=== PATIENT | female | born 1960 | race Caucasian/White ===

== ENCOUNTER 2018-10-29 01:48 | Emergency (ER) | payer BC, OTHER ==
[~2018-10-29] VITALS: Ht 154.9 cm; Wt 104.3 kg
[~2018-10-29 01:48] MED LIST: CYMBALTA; MICARDIS; NEXIUM40 MG PO; TRIAMTERENE-HCTZ1 EA PO; VERAPAMIL; Z.0.BACTRIM DS TAB1; ZEGERID
[2018-10-29] MEDS ORDERED: KETOROLAC TROMETHAMINE 30 MG/ML VIAL IV STA (01:55)
[2018-10-29 02:33] LABS: BASOPHILS # (AUTO) 0.1 (0.0-0.1); BASOPHILS % 0.7 % (0.0-1.0); EOSINOPHILS # (AUTO) 0.2 (0.0-0.4); EOSINOPHILS % 2.4 % (0.0-6.0); HEMATOCRIT 45.1 % (34.2-44.1); HEMOGLOBIN 14.4 g/dL (12.0-16.0); LYMPHOCYTES # (AUTO) 3.1 (1.0-3.2); LYMPHOCYTES % 43.5 % (18.0-39.1); MEAN CORPUSCULAR HEMOGLOBIN 30.5 pg (28-32); MEAN CORPUSCULAR HGB CONC 31.9 g/dL (31-35); MEAN CORPUSCULAR VOLUME 95.6 fL (81-99); MONOCYTES # (AUTO) 0.5 (0.2-0.8); MONOCYTES % 7.1 % (4.4-11.3); NEUTROPHILS # (AUTO) 3.3 (2.1-6.9); PLATELET COUNT 337 x10e3/uL (140-360); RED BLOOD COUNT 4.72 x10e6/uL (3.6-5.1); RED CELL DISTRIBUTION WIDTH 14.5 % (11.7-14.4)
[2018-10-29 03:06] LABS: ALANINE AMINOTRANSFERASE 14 IU/L (0-55); ALBUMIN 3.5 g/dL (3.5-5.0); ALBUMIN/GLOBULIN RATIO 0.9 (0.8-2.0); ALKALINE PHOSPHATASE 162 IU/L (40-150); ANION GAP 15.5 mmol/L (8-16); BLOOD UREA NITROGEN 18 mg/dL (7-26); BUN/CREATININE RATIO 20 (6-25); CALCIUM 9.8 mg/dL (8.4-10.2); CARBON DIOXIDE 26 mmol/L (22-29); CHLORIDE 98 mmol/L (98-107); CREATININE, SERUM 0.88 mg/dL (0.57-1.11); EST GLOMERULAR FILTRATION RATE > 60 ML/MIN (60-); GLUCOSE 111 mg/dL (74-118); POTASSIUM 3.5 mmol/L (3.5-5.1); SODIUM 136 mmol/L (136-145)
--- NOTE | 2018-10-29 04:13 | Diagnostic Imaging Report ---
EXAM: CT Abdomen and Pelvis WITHOUT contrast INDICATION: Right flank pain COMPARISON: None. TECHNIQUE: Abdomen and pelvis were scanned utilizing a multidetector helical scanner from the lung base to the pubic symphysis without administration of IV contrast. Absence of intravenous contrast decreases sensitivity for detection of focal lesions and vascular pathology. Coronal and sagittal reformations were obtained. Routine protocol was performed. IV CONTRAST: None ORAL CONTRAST: None COMPLICATIONS: None RADIATION DOSE: Total DLP: 747 mGy*cm Estimated effective dose: (DLP x 0.015 x size factor) mSv CTDIvol has been reviewed. It is below the limits set by the Radiation Protocol Committee (RPC). Dose modulation, iterative reconstruction, and/or weight based adjustment of the mA/kV was utilized to reduce the radiation dose to as low as reasonably achievable. FINDINGS: LINES and TUBES: None. LOWER THORAX: Unremarkable HEPATOBILIARY: No focal hepatic lesions. No biliary ductal dilation. GALLBLADDER: No radio-opaque stones or sludge. No wall thickening. SPLEEN: No splenomegaly. PANCREAS: No focal masses or ductal dilatation. ADRENALS: No adrenal nodules KIDNEYS/URETERS: No hydronephrosis. No cystic or solid mass lesions. No stones. GI TRACT: No abnormal distention, wall thickening, or evidence of bowel obstruction. Partial gastrectomy. Appendix is normal. PELVIC ORGANS/BLADDER: Hysterectomy. No adnexal masses. LYMPH NODES: No lymphadenopathy. VESSELS: There is mild atherosclerotic disease in the aorta and major arterial branches. PERITONEUM / RETROPERITONEUM: No free air or fluid. BONES: There are degenerative changes in the lumbar spine. SOFT TISSUES: Unremarkable. IMPRESSION: No acute abdominal or pelvic abnormalities on this noncontrast abdominal CT. Signed by: Michael Gray DO on 10/29/2018 4:10 AM
[2018-10-29 04:26] LABS: BILIRUBIN,URINE NEGATIVE (NEGATIVE); CLARITY,URINE CLOUDY (CLEAR); COLOR,URINE YELLOW (YELLOW); KETONES,URINE NEGATIVE (NEGATIVE); LEUKOCYTE ESTERASE ,URINE TRACE (NEGATIVE); NITRITE,URINE NEGATIVE (NEGATIVE); PROTEIN,URINE DIPSTICK TRACE (NEGATIVE); URINE UROBILINOGEN 0.2 mg/dL (0.2 - 1)
[2018-10-29 04:45] LABS: BACTERIA,URINE MANY /HPF; EPITHELIAL CELLS,URINE FEW /LPF; TRANSITIONAL EPI CELLS,URINE FEW; WBC,URINE (MAN) >50 /HPF (0-5)
[2018-10-29] MEDS ORDERED: CEFTRIAXONE SOD 1 GM/NS 50 ML 50 ML IV ONE (05:00)
[2018-10-29 05:14] VITALS: BP 113/72
== END 2018-10-29 05:45 | disposition home or self-care (01) ==
LOC: ER 01:48
DX: N30.01 Acute cystitis with hematuria (principal); I10 Essential (primary) hypertension; E11.9 Type 2 diabetes mellitus without complications; Z83.3 Family history of diabetes mellitus; Z82.49 Family history of ischemic heart disease and other diseases of the circulatory system; Z88.0 Allergy status to penicillin; Z88.2 Allergy status to sulfonamides; Z88.5 Allergy status to narcotic agent; E78.5 Hyperlipidemia, unspecified; Z87.440 Personal history of urinary (tract) infections; F41.9 Anxiety disorder, unspecified; Z98.84 Bariatric surgery status
CPT/HCPCS: 36415; 74176; 80053; 81001; 85025; 99284; J0696; J1885

== ENCOUNTER 2019-11-27 14:32 | Emergency (ER) | payer BC ==
[~2019-11-27] VITALS: Ht 154.9 cm; Wt 104.3 kg
[2019-11-27] MEDS ORDERED: SODIUM CHLORIDE 0.9% 500ML 500 ML IV ONE (14:45)
[2019-11-27] MEDS ORDERED: SODIUM CHLORIDE 0.9% 1000ML 1,000 ML IV STA (14:45)
[2019-11-27] MEDS ORDERED: ASPIRIN 81 MG CHEW TAB PO ONE (14:45)
[2019-11-27] MEDS ORDERED: FAMOTIDINE 20 MG/2 ML VIAL IV ONE (15:04)
[2019-11-27 15:06] LABS: BASOPHILS # (AUTO) 0.1 (0.0-0.1); BASOPHILS % 0.7 % (0.0-1.0); EOSINOPHILS # (AUTO) 0.1 (0.0-0.4); EOSINOPHILS % 1.6 % (0.0-6.0); HEMATOCRIT 44.7 % (34.2-44.1); HEMOGLOBIN 14.1 g/dL (12.0-16.0); LYMPHOCYTES # (AUTO) 2.4 (1.0-3.2); MEAN CORPUSCULAR HEMOGLOBIN 29.7 pg (28-32); MEAN CORPUSCULAR HGB CONC 31.5 g/dL (31-35); MEAN CORPUSCULAR VOLUME 94.3 fL (81-99); MONOCYTES # (AUTO) 0.5 (0.2-0.8); MONOCYTES % 5.8 % (4.4-11.3); NEUTROPHILS # (AUTO) 5.2 (2.1-6.9); NEUTROPHILS % 62.7 % (38.7-80.0); PLATELET COUNT 342 x10e3/uL (140-360); RED BLOOD COUNT 4.74 x10e6/uL (3.6-5.1); RED CELL DISTRIBUTION WIDTH 15.5 % (11.7-14.4)
[2019-11-27] MEDS ORDERED: DIPHENHYDRAMINE HCL INJ 50 MG/ML VIAL IV ONE (15:15)
--- OUTSIDE RECORDS SUMMARY | 2019-11-27 15:26 | XMS REPORT | Continuity of Care Document ---
Author Author [facility] t Organization [facility] Address [address] [place] [address] Phone Unavailable Care Team Providers Care Test Bore Helper Name Role Phone ROSE BARRETO, AMRIT PCP Albina CHANCE Attphys Unavailable Payers Payer Name Policy Type Policy Number Effective Date Expiration Date S raeann [employer] [place] P[place] [id number] [facility] Problems This patient has no known problems. Allergies, Adverse Reactions, Alerts Allergy Name Allergy Type Status Severity Reaction(s) Onset Date Inacti ve Date Treating Clinician Comments Source Penicillin Allergy to Substance Active RASH 2018-10-29 00:00:00 [facility] Sulfa (Sulfonamide Antibiotics) Allergy to Substance Active RASH 2018-10-29 00:00:00 [facility] Hydrocodone Propensity to adverse reactions Active [facility] 2018-10-29 00:00:00 [facility] Medications Ordered Medication Name Filled Medication Name Start Date Stop Da te Current Medication? Ordering Clinician Indication Dosage Frequency Signature (SIG) Comments Components Source Cymbalta Cymbalta Yes Unk Dose Daily [facility] Esomeprazole Magnesium (Nexium) 40 Mg Capsule.dr Boudreaux prazole Magnesium (Nexium) 40 Mg Capsule.dr Ramirez 40 Daily [facility] Micardis Micardis Yes Unk Dose Daily [facility] Triamterene/Hctz (Triamterene-Hctz 37.5-25 Mg Tb) 1 Ea Tab Triamterene/Hctz (Triamterene-Hctz 37.5-25 Mg Tb) 1 Ea Tab Yes 1 Daily [facility] Procedures Procedure Date / Time Performed Performing Clinician Sourc e CT of abdomen and pelvis without contrast 2018-10-29 00:00:0 0 NASIMA CHANCE [facility] Encounters Start Date/Time End Date/Time [facility] ID Source 2018-10-29 01:48:00 2018-10-29 05:45:00 Departed Emergency Room 1 NASIMA CHANCE [facility] [id number] [facility] Results Test Description Test Time Test Comments Results Result Comments Source Urine WBC 2018-10-29 04:45:00 Test Item Urine WBC (test code = 5821-4) >50 0-5 [facility] [id number] 04:45:00* Test Item Value Reference Range Interpretation Comments Urine RBC (test code = 86926-6) 6-10 0-5 [facility] [id number] 04:45:00* Test Item Value Reference Range Interpretation Comments Urine Bacteria (test code = 58741-6) [facility]ONE [facility] Zldej6658-11-86 04:45:00 * Test Item Value Reference Range Interpretation Comments Urine Epithelial Cells (test code = 27722-3) FEW NONE [facility] Transitional Epithelial Cells 2018-10-29 04:45:00* Test Item Value Reference Range Interpretation Comments Urine Transitional Epithelial Cells (test code = 8249-5) [facility]W NONE [facility] Yewrk9954-12-17 04:34:00* Test Item Value Reference Range Interpretation Comments Urine Color (test code = 5778-6) YELLOW YELLOW [facility] [id number] 04:34:00* Test Item Value Reference Range Interpretation Comments Urine Clarity (test code = 06024-3) CLOUDY CLEAR [facility] Vfnnjlh7840-03-71 04:34:00 * Test Item Value Reference Range Interpretation Comments Urine Specific [place] (test code = 5811-5) 1.020 1.010-1.02 5 [facility] [id number] 04:34:00* Test Item Value Reference Range Interpretation Comments Urine pH (test code = 33413-2) 6 5-7 [facility] Leukocyte Fhlcaihy0754-81-14 04:34:00* Test Item Value Reference Range Interpretation Comments Urine Leukocyte Esterase (test code = 52553-3) TRACE NEGATIV E H [facility] Avibpbz1849-28-32 04:34:00* Test Item Value Reference Range Interpretation Comments Urine Nitrite (test code = 33037-5) NEGATIVE NEGATIVE [facility] Llfbylf3617-84-43 04:34:00* Test Item Value Reference Range Interpretation Comments Urine Protein (test code = 14466-7) TRACE NEGATIVE H [facility] Glucose (UA)2018-10-29 04:34:00* Test Item Value Reference Range Interpretation Comments Urine Glucose (UA) (test code = 73515-7) NEGATIVE NEGATIVE [facility] Fzsobvt9166-65-31 04:34:00* Test Item Value Reference Range Interpretation Comments Urine Ketones (test code = 34728-0) NEGATIVE NEGATIVE [facility] Dpcjcmjewlye8117-20-22 04:34:00* Test Item Value Reference Range Interpretation Comments Urine Urobilinogen (test code = 21626-9) 0.2 0.2-1 [facility] Aooduoerz4745-56-86 04:34:00* Test Item Value Reference Range Interpretation Comments Urine Bilirubin (test code = 1977-8) NEGATIVE NEGATIVE [facility] Urqfo3158-43-51 04:34:00* Test Item Value Reference Range Interpretation Comments Urine Blood (test code = 54174-2) NEGATIVE NEGATIVE [facility] [id number] 03:51:00 [place] [address] Patient Name: MICHAELA SANDOVAL MR #: [id number] : 1960 Age/Sex: 57/F Req #: [id number] Adm Physician: Ordered by: NASIMA CHANCE MD Report #: [id number] Location: ER Room/Bed: Procedure: 0911-[address]/CT ABDOMEN/PELVIS WO Exam Date: 10/29/18 Exam Time: 214 REPORT STATUS: Signed EXAM: CT Abdomen and Pelvis WITHOUT contrast INDICATION: Right flank pain COMPARISON: None. TECHNIQUE: Abdomen and pelvis were scanned utilizing a m [employer] Therapeutic[employer]ector helical scanner from the lung base to the pubic symphysis without administration of IV contrast. Absence of intravenous contrast decreases sens itivity for detection of focal lesions and vascular pathology. Coronal and sag ittal reformations were obtained. Routine protocol was performed. IV C ONTRAST: None ORAL CONTRAST: None COMPLICATIONS: None RADIATION DOSE: Total DLP: 747 mGy*cm Estimated effective dose: (DLP x 0.015 x size factor) mSv CTDIvol has been reviewed. It is below t he limits set by the Radiation Protocol Committee (RPC). Dose modulatio n, iterative reconstruction, and/or weight based adjustment of the mA/kV was u tilized to reduce the radiation dose to as low as reasonably achievable. FINDINGS: LINES and TUBES: None. LOWER THORAX: Unremarkable HEP ATOBILIARY: No focal hepatic lesions. No biliary ductal dilation. GAL LBLADDER: No radio-opaque stones or sludge. No wall thickening. SPLEEN: No splenomegaly. PANCREAS: No focal masses or ductal dilatation. ADRE NALS: No adrenal nodules KIDNEYS/URETERS: No hydronephrosis. No cystic or solid mass lesions. No stones. GI TRACT: No abnormal distention, wall thickening, or evidence of bowel obstruction. Partial gastrectomy. Appendix is normal. PELVIC ORGANS/BLADDER: Hysterectomy. No adnexal masses. LYMPH NODES: No lymphadenopathy. VESSELS: There is mild atherosclerotic dis ease in the aorta and major arterial branches. PERITONEUM / RETROPERITONE UM: No free air or fluid. BONES: There are degenerative changes in the lumb ar spine. SOFT TISSUES: Unremarkable. IMPRESSION: No acute abdominal or pelvic abnormalities on this noncontrast abdominal CT. Signed by: Michael Gray DO on 10/29/2018 4:10 AM Dictated By: MICHAEL GRAY DO 9 Hahn scribed By: ANIYA on 10/29/18409 COPY TO: NASIMA CHANCE MD Sodium Mprlu6828-32-37 03:09:00* Test Item Value Reference Range Interpretation Comments Sodium Level (test code = 2951-2) 136 136-145 [facility] Tlqpk2511-83-71 03:09:00* Test Item Value Reference Range Interpretation Comments Potassium Level (test code = 2823-3) 3.5 3.5-5.1 [facility] HospitalChloride Badej6724-80-65 03:09:00* Test Item Value Reference Range Interpretation Comments Chloride Level (test code = 2075-0) 98 98-107 [facility] HospitalCarbon Dioxide Aktnf2531-51-55 03:09:00* Test Item Value Reference Range Interpretation Comments Carbon Dioxide Level (test code = 2028-9) 26 22-29 [facility] HospitalAnion Nmo2428-78-56 03:09:00* Test Item Value Reference Range Interpretation Comments Anion Gap (test code = 43752-8) 15.5 8-16 [facility] HospitalBlood Urea Oqpeknzh6867-31-86 03:09:00* Test Item Value Reference Range Interpretation Comments Blood Urea Nitrogen (test code = 3094-0) 18 7-26 [facility] HospitalCreatinine2019-09-11 03:09:00* Test Item Value Reference Range Interpretation Comments Creatinine (test code = 2160-0) 0.88 0.57-1.11 [facility] HospitalBUN/Creatinine Bpzxx8418-72-77 03:09:00* Test Item Value Reference Range Interpretation Comments BUN/Creatinine Ratio (test code = 3097-3) 20 6-25 [facility] HospitalEstimat Glomerular Filtration Rate 2018-10-29 03:09:00* Test Item Value Reference Range Interpretation Comments Estimat Glomerular Filtration Rate (test code = 538496587) > 60 >60 Ranges were taken from the National Kidney Disease Education Program and the [facility] literature.Reference ranges:60 or greater: Hcwwlu06-63 ( for 3 consecutive months): Chronic kidney disease 15 or less: Kidney failureJohn Peter Smith HospitalGlucose Xplno0528-80-88 03:09:00* Test Item Value Reference Range Interpretation Comments Glucose Level (test code = BOZ7276) 111 74-118 [facility] HospitalCalcium Vjsfa0727-66-03 03:09:00* Test Item Value Reference Range Interpretation Comments Calcium Level (test code = 67495-6) 9.8 8.4-10.2 [facility] HospitalTotal Dtgdfouye5281-47-04 03:09:00* Test Item Value Reference Range Interpretation Comments Total Bilirubin (test code = 1975-2) 1.4 0.2-1.2 H [facility] HospitalAspartate Amino Transf (AST/SGOT) 2018-10-29 03:09:00* Test Item Value Reference Range Interpretation Comments Aspartate Amino Transf (AST/SGOT) (test code = Aspartate Amino Transf (AST/SGOT)) 16 5-34 [facility] HospitalAlanine Aminotransferase (ALT/SGPT) 2018-10-29 03:09:00* Test Item Value Reference Range Interpretation Comments Alanine Aminotransferase (ALT/SGPT) (test code = 1742-6) 14 0-55 [facility] HospitalTotal Lqpqmub2958-29-91 03:09:00* Test Item Value Reference Range Interpretation Comments Total Protein (test code = 2885-2) 7.2 6.5-8.1 [facility] HospitalAlbumin2019-09-11 03:09:00* Test Item Value Reference Range Interpretation Comments Albumin (test code = 1751-7) 3.5 3.5-5.0 [facility] HospitalGlobulin2019-09-11 03:09:00* Test Item Value Reference Range Interpretation Comments Globulin (test code = 02740-4) 3.7 2.3-3.5 H [facility] HospitalAlbumin/Globulin Tbslh8801-61-94 03:09:00 * Test Item Value Reference Range Interpretation Comments Albumin/Globulin Ratio (test code = 1759-0) 0.9 0.8-2.0 [facility] HospitalAlkaline Jaledueevjm2069-03-41 03:09:00* Test Item Value Reference Range Interpretation Comments Alkaline Phosphatase (test code = 6768-6) 162 40-150 H [facility] HospitalWhite Blood Xywbv3283-83-54 02:35:00* Test Item Value Reference Range Interpretation Comments White Blood Count (test code = 6690-2) 7.15 4.8-10.8 [facility] HospitalRed Blood Mchme5768-65-19 02:35:00* Test Item Value Reference Range Interpretation Comments Red Blood Count (test code = 789-8) 4.72 3.6-5.1 [facility] HospitalHemoglobin2019-09-11 02:35:00* Test Item Value Reference Range Interpretation Comments Hemoglobin (test code = 45063-8) 14.4 12.0-16.0 [facility] HospitalHematocrit2019-09-11 02:35:00* Test Item Value Reference Range Interpretation Comments Hematocrit (test code = 4544-3) 45.1 34.2-44.1 H [facility] HospitalMean Corpuscular Biysst7625-78-00 02:35:00* Test Item Value Reference Range Interpretation Comments Mean Corpuscular Volume (test code = 787-2) 95.6 81-99 [facility] HospitalMean Corpuscular Kqqpmhbehs0077-33-62 02:35:00* Test Item Value Reference Range Interpretation Comments Mean Corpuscular Hemoglobin (test code = 785-6) 30.5 28-32 [facility] Corpuscular Hemoglobin Concent 2018-10-29 02:35:00* Test Item Value Reference Range Interpretation Comments Mean Corpuscular Hemoglobin Concent (test code = 786-4) 31.9 31-35 [facility] HospitalRed Cell Distribution Erwnm0703-86-60 02:35:00* Test Item Value Reference Range Interpretation Comments Red Cell Distribution Width (test code = 63203-9) 14.5 11.7 -14.4 H [facility] HospitalPlatelet Qylpx4538-24-58 02:35:00* Test Item Value Reference Range Interpretation Comments Platelet Count (test code = 777-3) 337 140-360 [facility] HospitalNeutrophils (%) (Auto)2018-10-29 02:35:00 * Test Item Value Reference Range Interpretation Comments Neutrophils (%) (Auto) (test code = 92762-0) 46.0 38.7-80.0 [facility] HospitalLymphocytes (%) (Auto)2018-10-29 02:35:00 * Test Item Value Reference Range Interpretation Comments Lymphocytes (%) (Auto) (test code = 736-9) 43.5 18.0-39.1 H [facility] HospitalMonocytes (%) (Auto)2018-10-29 02:35:00* Test Item Value Reference Range Interpretation Comments Monocytes (%) (Auto) (test code = 5905-5) 7.1 4.4-11.3 [facility] HospitalEosinophils (%) (Auto)2018-10-29 02:35:00 * Test Item Value Reference Range Interpretation Comments Eosinophils (%) (Auto) (test code = 713-8) 2.4 0.0-6.0 [facility] HospitalBasophils (%) (Auto)2018-10-29 02:35:00* Test Item Value Reference Range Interpretation Comments Basophils (%) (Auto) (test code = 706-2) 0.7 0.0-1.0 [facility] HospitalIM GRANULOCYTES %2018-10-29 02:35:00* Test Item Value Reference Range Interpretation Comments IM GRANULOCYTES % (test code = IM GRANULOCYTES %) 0.3 0.0- 1.0 [facility] HospitalNeutrophils # (Auto)2018-10-29 02:35:00* Test Item Value Reference Range Interpretation Comments Neutrophils # (Auto) (test code = 751-8) 3.3 2.1-6.9 [facility] HospitalLymphocytes # (Auto)2018-10-29 02:35:00* Test Item Value Reference Range Interpretation Comments Lymphocytes # (Auto) (test code = 72891-4) 3.1 1.0-3.2 [facility] HospitalMonocytes # (Auto)2018-10-29 02:35:00* Test Item Value Reference Range Interpretation Comments Monocytes # (Auto) (test code = 742-7) 0.5 0.2-0.8 [facility] HospitalEosinophils # (Auto)2018-10-29 02:35:00* Test Item Value Reference Range Interpretation Comments Eosinophils # (Auto) (test code = 711-2) 0.2 0.0-0.4 [facility] HospitalBasophils # (Auto)2018-10-29 02:35:00* Test Item Value Reference Range Interpretation Comments Basophils # (Auto) (test code = 704-7) 0.1 0.0-0.1 [facility] HospitalAbsolute Immature Granulocyte (auto 2018-10-29 02:35:00* Test Item Value Reference Range Interpretation Comments Absolute Immature Granulocyte (auto (carlotta t code = Absolute Immature Granulocyte (auto) 0.02 0-0.1 [facility] 2018-09-12 11:16:10 - SCR MAMM BILATERAL MAKI CAD DIGITALBILATERAL DIGITAL SCREENING MAMMOGRAM 3D/2D WITH CAD: 09/12/2018CLINICAL: Asymptomatic. Digital breast tomosynthesis was performed in addition to routine CC and MLO views. Current mammographic images were evaluated by either a [employer] M-Vu or a [employer] ImageChecker CAD (computer aided detection system). Comparison is made to exams dated 09/29/2015 mammogram, 06/13/2009 mammogram - [facility], and 09/27/2005 mammogram - [facility]. The tissue of both breasts is predominantly fatty. No suspicious mass, architectural distortion, malignant type calcification, or lymph node abnormality detected. Breast architecture is stable compared to prior exams.IMPRESSION: NEGATIVEThere is no mammographic evidence of malignancy. Resume annual screening mammography in one year. Emmanuel phillips/brittaney:09/12/2018 11:16:10 Wood Borer: Anju MELISSA, [facility] sent: BIRADS 1-2 Normal Mammogram BI-RADS: 1 Negative
[2019-11-27 15:33] LABS: INR 0.88; PARTIAL THROMBOPLASTIN TIME 23.7 seconds (23.8-35.5); PROTHROMBIN TIME 12.4 seconds (11.9-14.5)
[2019-11-27 15:43] LABS: ALBUMIN 3.6 g/dL (3.5-5.0); ANION GAP 13.8 mmol/L (8-16); CALCIUM 9.3 mg/dL (8.4-10.2); CREATININE, SERUM 0.99 mg/dL (0.57-1.11); MAGNESIUM 1.9 MG/DL (1.3-2.1); POTASSIUM 3.8 mmol/L (3.5-5.1)
--- NOTE | 2019-11-27 15:48 | Diagnostic Imaging Report ---
EXAMINATION: CHEST SINGLE (PORTABLE) INDICATION: Right-sided numbness. COMPARISON: None FINDINGS: TUBES and LINES: None. LUNGS: Normal lung volumes. Lungs are clear. No consolidations. There is bibasilar atelectasis. PLEURA: No pleural effusion or pneumothorax. HEART AND MEDIASTINUM: The cardiomediastinal silhouette is unremarkable. BONES AND SOFT TISSUES: No acute osseous lesion. Soft tissues are unremarkable. UPPER ABDOMEN: No free air under the diaphragm. IMPRESSION: No acute thoracic radiographic abnormality. Signed by: Moira Miller MD on 11/27/2019 3:45 PM
--- NOTE | 2019-11-27 15:50 | Diagnostic Imaging Report ---
Exam: Head CT without contrast History: Right-sided facial, tongue and finger numbness. Comparison studies: None Technique: Axial images were obtained from the skull base to the vertex. Coronal and sagittal images reconstructed from the axial data. Dose modulation, iterative reconstruction, and/or weight based adjustment of the mA/kV was utilized to reduce the radiation dose to as low as reasonably achievable. Radiation dose: Total DLP: 921.4 mGy*cm. Estimated effective dose: DLP x 0.015 Intravenous contrast: None Findings: Scalp: No abnormalities. Bones: No fractures, blastic or lytic lesions. Brain sulci: Appropriate for age. Ventricles: Normal in size and configuration. No hydrocephalus. Extra-axial spaces: No masses, no fluid collection. Parenchyma: No abnormal densities. No masses, hemorrhage, acute or chronic vascular insults. Sellar/suprasellar region: No abnormalities. Craniocervical junction: Patent foramen magnum. No Chiari one malformation. Included paranasal sinuses: Clear. Middle ear cavities and included mastoids: Clear. Incidental findings: Atherosclerotic calcifications in the carotid siphons. IMPRESSION: No acute intracranial abnormalities. Consider brain MRI to further evaluate if symptoms persist. Signed by: Dr. Jenaro Oates M.D. on 11/27/2019 3:47 PM
[2019-11-27 16:03] LABS: CREATINE KINASE MB 0.5 ng/mL (0-5.0); THYROID STIMULATING HORMONE 1.821 uIU/mL (0.350-4.940)
[2019-11-27 16:15] LABS: BILIRUBIN,URINE NEGATIVE (NEGATIVE); CLARITY,URINE CLEAR (CLEAR); COLOR,URINE YELLOW (YELLOW); KETONES,URINE NEGATIVE (NEGATIVE); LEUKOCYTE ESTERASE ,URINE NEGATIVE (NEGATIVE); NITRITE,URINE NEGATIVE (NEGATIVE); PROTEIN,URINE DIPSTICK NEGATIVE (NEGATIVE); URINE UROBILINOGEN 0.2 mg/dL (0.2 - 1)
[2019-11-27 16:29] LABS: EPITHELIAL CELLS,URINE FEW /LPF; RBC,URINE 0-5 /HPF (0-5); WBC,URINE (MAN) 0-5 /HPF (0-5)
--- NOTE | 2019-11-27 16:58 | Emergency Department Note ---
History of Present Illnes History of Present Illness Chief Complaint: Neurological History of Present Illness This is a 59 year old female PATIENT IN FROM PCP OFFICE FOR EVALUATION OF RIGHT SIDED FACIAL, TONGUE AND FINGER NUMBNESS STARTING ABOUT AN HOUR PRIOR TO ARRIVAL. PATIENT ALERT AND ORIENTED, RESP EVEN AND NONLABORED, APPEARS IN NO DISTRESS, DENIES PAIN AT THIS TIME; FACIAL FEATURES SYMMETRICAL. PATIENT STATES THAT HER FINGERS ARE NO LONGER NUMB, BUT HER LIP AND TONGUE ARE. Historian: Patient Arrival Mode: Car Equine Vet Required: No Location: FACE, FINGERS ON RIGHT (ONLY FINGERS, NOT ARM/FOREARM/SHOULDER) Quality: NUMB/TINGING Radiation: Reports non-radiation Severity: mild Onset quality: sudden Timing of current episode: constant Progression: partially resolved Chronicity: new Context: Denies recent illness Relieving factors: none Exacerbating factors: none Associated symptoms: Reports denies other symptoms Past Medical/Family History Physician Review I have reviewed the patient's past medical and family history. Any updates have been documented here. Past Medical History Recent Fever: No Clinical Suspicion of Infectio: No New/Unexplained Change in Ment: No Past Medical History: Hypertension, Diabetes, UTI's, Anxiety, Hyperlipedemia Other Medical History: FIBROMYALGIA HIATAL HERNIA Past Surgical History: Cholecysctectomy Other Surgery: FEET/BONE SPUR SURGERY HIATAL HERNIA REPAIR GASTRIC SLEEVE SURGERY APRIL 2013 Social History Smoking Cessation: Never Smoker Counseling Performed: No Alcohol Use: None Any Illegal Drug Use: No TB Exposure/Symptoms: No Physically hurt or threatened: No Family History Family history of heart diseas: No Other Last Tetanus: UTD Any Pre-Existing Lines (PICC,: No Review of Systems Review of Systems Constitutional: Reports no symptoms EENTM: Reports no symptoms Cardiovascular: Reports no symptoms Respiratory: Reports no symptoms Gastrointestinal: Reports no symptoms Genitourinary: Reports no symptoms Musculoskeletal: Reports no symptoms Integumentary: Reports no symptoms Neurological: Reports as per HPI, Reports numbness, Reports paresthesia; Denies weakness Psychological: Reports no symptoms Endocrine: Reports no symptoms Hematological/Lymphatic: Reports no symptoms Physical Exam Related Data Allergies: Coded Allergies: Iodinated Contrast Media (Verified Allergy, Severe, 11/27/19) Penicillins (Verified Allergy, Unknown, RASH, 11/27/19) Sulfa (Sulfonamide Antibiotics) (Verified Allergy, Unknown, RASH, 11/27/19) hydrocodone (Verified Adverse Reaction, Unknown, HALLUCINATIONS, 11/27/19) Triage Vital Signs Vital Signs Date Time Temp Pulse Resp B/P (MAP) Pulse Ox O2 Delivery O2 Flow Rate FiO2 11/27/19 14:35 98.5 88 20 165/79 100 Room Air Vital signs reviewed: Yes Physical Exam CONSTITUTIONAL Constitutional: Present well-developed, Present well-nourished HENT HENT: Present normocephalic, Present atraumatic, Present oropharynx clear/mois t, Present nose normal HENT L/R: Present left ext ear normal, Present right ext ear normal EYES Eyes: Reports PERRL, Reports conjunctivae normal NECK Neck: Present ROM normal PULMONARY Pulmonary: Present effort normal, Present breath sounds normal CARDIOVASCULAR Cardiovascular: Present regular rhythm, Present heart sounds normal, Present capillary refill normal, Present normal rate GASTROINTESTINAL Abdominal: Present soft, Present nontender, Present bowel sounds normal GENITOURINARY Genitourinary: Present exam deferred SKIN Skin: Present warm, Present dry MUSCULOSKELETAL Musculoskeletal: Present ROM normal NEUROLOGICAL Neurological: Present alert, Present oriented x 3, Present DTRs normal, Present no gross motor or sensory deficits; Absent cranial nerve deficit, Absent sensory deficit, Absent weakness PSYCHOLOGICAL Psychological: Present mood/affect normal, Present judgement normal Results Laboratory Result Diagram: 11/27/19 1445 11/27/19 1445 Laboratory Laboratory Tests Test 11/27/19 15:35 11/27/19 14:57 11/27/19 14:45 11/27/19 14:41 Bedside Glucose 163 mg/dL (70-120) White Blood Count 8.24 x10e3/uL (4.8-10.8) Red Blood Count 4.74 x10e6/uL (3.6-5.1) Hemoglobin 14.1 g/dL (12.0-16.0) Hematocrit 44.7 % (34.2-44.1) Mean Corpuscular Volume 94.3 fL (81-99) Mean Corpuscular Hemoglobin 29.7 pg (28-32) Mean Corpuscular Hemoglobin Concent 31.5 g/dL (31-35) Red Cell Distribution Width 15.5 % (11.7-14.4) Platelet Count 342 x10e3/uL (140-360) Neutrophils (%) (Auto) 62.7 % (38.7-80.0) Lymphocytes (%) (Auto) 29.0 % (18.0-39.1) Monocytes (%) (Auto) 5.8 % (4.4-11.3) Eosinophils (%) (Auto) 1.6 % (0.0-6.0) Basophils (%) (Auto) 0.7 % (0.0-1.0) Neutrophils # (Auto) 5.2 (2.1-6.9) Lymphocytes # (Auto) 2.4 (1.0-3.2) Monocytes # (Auto) 0.5 (0.2-0.8) Eosinophils # (Auto) 0.1 (0.0-0.4) Basophils # (Auto) 0.1 (0.0-0.1) Absolute Immature Granulocyte (auto 0.02 x10e3/uL (0-0.1) Prothrombin Time 12.4 seconds (11.9-14.5) Prothromb Time International Ratio 0.88 Activated Partial Thromboplast Time 23.7 seconds (23.8-35.5) Sodium Level 138 mmol/L (136-145) Potassium Level 3.8 mmol/L (3.5-5.1) Chloride Level 105 mmol/L (98-107) Carbon Dioxide Level 23 mmol/L (22-29) Anion Gap 13.8 mmol/L (8-16) Blood Urea Nitrogen 17 mg/dL (7-26) Creatinine 0.99 mg/dL (0.57-1.11) Estimat Glomerular Filtration Rate 57 ML/MIN (60-) BUN/Creatinine Ratio 17 (6-25) Glucose Level 177 mg/dL (74-118) Calcium Level 9.3 mg/dL (8.4-10.2) Magnesium Level 1.9 MG/DL (1.3-2.1) Total Bilirubin 0.7 mg/dL (0.2-1.2) Aspartate Amino Transf (AST/SGOT) 13 IU/L (5-34) Alanine Aminotransferase (ALT/SGPT) 10 IU/L (0-55) Alkaline Phosphatase 161 IU/L (40-150) Creatine Kinase 38 IU/L (29-168) Creatine Kinase MB 0.50 ng/mL (0-5.0) Troponin I 0.004 ng/mL (0-0.300) Total Protein 7.2 g/dL (6.5-8.1) Albumin 3.6 g/dL (3.5-5.0) Globulin 3.6 g/dL (2.3-3.5) Albumin/Globulin Ratio 1.0 (0.8-2.0) Thyroid Stimulating Hormone (TSH) 1.821 uIU/mL (0.350-4.940) Urine Color Yellow (YELLOW) Urine Clarity Clear (CLEAR) Urine pH 6 (5 - 7) Urine Specific Ramona 1.020 (1.010-1.025) Urine Protein Negative (NEGATIVE) Urine Glucose (UA) Negative (NEGATIVE) Urine Ketones Negative (NEGATIVE) Urine Blood Negative (NEGATIVE) Urine Nitrite Negative (NEGATIVE) Urine Bilirubin Negative (NEGATIVE) Urine Urobilinogen 0.2 mg/dL (0.2 - 1) Urine Leukocyte Esterase Negative (NEGATIVE) Urine RBC 0-5 /HPF (0-5) Urine WBC 0-5 /HPF (0-5) Urine Epithelial Cells Few /LPF (NONE) Urine Bacteria None /HPF (NONE) Lab results reviewed: Yes Imaging Imaging results reviewed: Yes Procedures 12 Lead ECG Interpretation ECG Interpretation : ECG: ECG 1 Equine Vet: Interpreted by ED physician Date: Nov 27, 2019 Time: 15:08 Rhythm: sinus rhythm Rate: normal BPM: 68 QRS axis: normal ST segments normal: Yes T waves normal: Yes Clinical Impression: normal ECG Assessment & Plan Medical Decision Making MDM PT WITH NUMBNESS IN STRANGE DISTRIBUTION (RIGHT SIDE OF LIP, RIGHT FINGERS ONLY) - CHECK CBC, CHEM, ECG, CARDIACS, TSH, CT BRAIN - R/O CEREBRAL BLEED, CVA, ELECTROLYTE ABNL, THYROID DYSFUNCTION Reassessment Reassessment PT IMPROVED - SHE WANTS TO GO HOME - WILL GIVE NUMBER TO F/U WITH DR ANGELES, F/U PCP, TAKE 81MG ASA QD Assessment & Plan Final Impression: (1) Paresthesia Depart Disposition: HOME, SELF-CARE Last Vital Signs Date Time Temp Pulse Resp B/P (MAP) Pulse Ox O2 Delivery O2 Flow Rate FiO2 11/27/19 14:35 98.5 88 20 165/79 100 Room Air Home Meds Reported Medications [Cymbalta] No Conflict Check, UNK DOSE DAILY 05/07/13 Esomeprazole Magnesium (NEXIUM) 40 Mg Capsule.dr, 40 MG PO DAILY 05/07/13 Triamterene/Hctz (TRIAMTERENE-HCTZ 37.5-25 MG TB) 1 Ea Tab, 1 TAB PO DAILY 05/07/13 [Micardis] No Conflict Check, UNK DOSE DAILY 05/07/13 Medications in the ED Sodium Chloride 1,000 ml @ 0 mls/hr Q0M STAT IV ; Start 11/27/19 at 14:45; Sto p 11/27/19 at 15:05; Status DC Aspirin 81 mg NOW ONCE PO ; Start 11/27/19 at 14:45; Stop 11/27/19 at 14:50; Status DC Sodium Chloride 500 ml @ 0 mls/hr Q0M ONCE IV Last administered on 11/27/19at 14 :50; Admin Dose 500 MLS/HR; Start 11/27/19 at 14:45; Stop 11/27/19 at 14:48; Status DC Diphenhydramine HCl 25 mg NOW ONCE IV Last administered on 11/27/19at 15:35; Admin Dose 25 MG; Start 11/27/19 at 15:15; Stop 11/27/19 at 15:16; Status DC Famotidine 40 mg NOW ONCE IV Last administered on 11/27/19at 15:35; Admin Dose 40 MG; Start 11/27/19 at 15:04; Stop 11/27/19 at 15:07; Status DC WILLIAM KRUGER MD Nov 27, 2019 16:58
[2019-11-27 17:07] VITALS: BP 130/99
== END 2019-11-27 17:25 | disposition home or self-care (01) ==
LOC: ER 14:59
DX: R20.2 Paresthesia of skin (principal); E11.65 Type 2 diabetes mellitus with hyperglycemia; I10 Essential (primary) hypertension; Z11.59 Encounter for screening for other viral diseases; E78.5 Hyperlipidemia, unspecified; M79.7 Fibromyalgia; Z98.84 Bariatric surgery status
CPT/HCPCS: 36415; 70450; 71045; 80053; 81001; 82550; 82553; 82948; 83735; 84443; 84484; 85025; 85610; 85730; 87086; 93005; 99284; J1200; J7040; U0002

== ENCOUNTER → 2019-12-03 | Outpatient (CLI) | payer BC | LOC: CARD 16:06 | PROVIDERS: ATTEND Family Medicine | DX: G45.9 Transient cerebral ischemic attack, unspecified (principal); E11.65 Type 2 diabetes mellitus with hyperglycemia; I10 Essential (primary) hypertension | CPT/HCPCS: 93880 ==

== ENCOUNTER → 2020-01-01 | Outpatient (CLI) | payer BC ==
[~2020-01-01] MED LIST changes: +GADOBENATE DIMEGLUMINE 1 ML IV ONE
[2020-01-01 15:32] LABS: BLOOD UREA NITROGEN 14 mg/dL (7-26); BUN/CREATININE RATIO 16 (6-25); CREATININE, SERUM 0.88 mg/dL (0.57-1.11); EST GLOMERULAR FILTRATION RATE > 60 ML/MIN (60-)
== END ==
LOC: MRI 14:34
PROVIDERS: ATTEND Psychiatry & Neurology Neurology
DX: G35 Multiple sclerosis (principal)
CPT/HCPCS: 36415; 70553; 82565; 84520; A9577

== ENCOUNTER 2021-01-28 12:01 | Emergency (ER) | payer BC ==
[~2021-01-28] VITALS: Ht 154.9 cm; Wt 104.3 kg
[~2021-01-28 12:01] MED LIST changes: -GADOBENATE DIMEGLUMINE 1 ML IV ONE
[2021-01-28] MEDS ORDERED: SODIUM CHLORIDE 0.9% 1000ML 1,000 ML IV STA (13:00)
[2021-01-28] MEDS ORDERED: ONDANSETRON HCL INJ 2MG/ML 2ML 2 MG/ML VIAL IV NR (13:00)
[2021-01-28] MEDS ORDERED: ACETAMINOPHEN/CODEINE 300MG - 30MG TAB PO NR (13:00)
[2021-01-28 13:18] LABS: BASOPHILS % 0.3 % (0.0-1.0); EOSINOPHILS # (AUTO) 0.1 (0.0-0.4); EOSINOPHILS % 1.1 % (0.0-6.0); HEMATOCRIT 43.2 % (34.2-44.1); HEMOGLOBIN 13.8 g/dL (12.0-16.0); LYMPHOCYTES # (AUTO) 2.7 (1.0-3.2); MEAN CORPUSCULAR HEMOGLOBIN 30.3 pg (28-32); MEAN CORPUSCULAR HGB CONC 31.9 g/dL (31-35); MEAN CORPUSCULAR VOLUME 94.7 fL (81-99); MONOCYTES # (AUTO) 0.5 (0.2-0.8); MONOCYTES % 4.8 % (4.4-11.3); NEUTROPHILS # (AUTO) 7.1 (2.1-6.9); NEUTROPHILS % 67.5 % (38.7-80.0); PLATELET COUNT 299 x10e3/uL (140-360); RED BLOOD COUNT 4.56 x10e6/uL (3.6-5.1); RED CELL DISTRIBUTION WIDTH 16.1 % (11.7-14.4)
[2021-01-28 13:35] LABS: ALBUMIN 3.8 g/dL (3.5-5.0); ALBUMIN/GLOBULIN RATIO 1.3 (0.8-2.0); ANION GAP 12.8 mmol/L (8-16); CREATININE, SERUM 0.79 mg/dL (0.57-1.11); POTASSIUM 3.8 mmol/L (3.5-5.1)
[2021-01-28 14:20] LABS: ERYTHROCYTE SEDIMENTATION RATE 12 mm/hr (0-20)
[2021-01-28 15:57] VITALS: BP 124/72
== END 2021-01-28 15:59 | disposition home or self-care (01) ==
LOC: ER 13:01
DX: R51.9 Headache, unspecified (principal); I10 Essential (primary) hypertension; E11.9 Type 2 diabetes mellitus without complications; E78.5 Hyperlipidemia, unspecified; F41.9 Anxiety disorder, unspecified; M79.7 Fibromyalgia; Z98.84 Bariatric surgery status
CPT/HCPCS: 36415; 70450; 70486; 80053; 85025; 85651; 99284; J7030

== ENCOUNTER → 2021-12-15 | Day surgery (SDC) | payer BC ==
[2021-12-14 08:14] LABS: BASOPHILS % 0.4 % (0.0-1.0); EOSINOPHILS # (AUTO) 0.1 (0.0-0.4); EOSINOPHILS % 0.9 % (0.0-6.0); HEMATOCRIT 43.4 % (34.2-44.1); HEMOGLOBIN 13.3 g/dL (12.0-16.0); LYMPHOCYTES # (AUTO) 1.9 (1.0-3.2); LYMPHOCYTES % 20.3 % (18.0-39.1); MEAN CORPUSCULAR HEMOGLOBIN 30.7 pg (28-32); MEAN CORPUSCULAR HGB CONC 30.6 g/dL (31-35); MEAN CORPUSCULAR VOLUME 100.2 fL (81-99); MONOCYTES # (AUTO) 0.4 (0.2-0.8); MONOCYTES % 4.8 % (4.4-11.3); NEUTROPHILS # (AUTO) 6.8 (2.1-6.9); NEUTROPHILS % 73.4 % (38.7-80.0); PLATELET COUNT 354 x10e3/uL (140-360); RED BLOOD COUNT 4.33 x10e6/uL (3.6-5.1); RED CELL DISTRIBUTION WIDTH 13.6 % (11.7-14.4)
[2021-12-14 09:12] LABS: ANION GAP 15.3 mmol/L (8-16); CALCIUM 9.1 mg/dL (8.4-10.2); CREATININE, SERUM 0.83 mg/dL (0.57-1.11); POTASSIUM 3.3 mmol/L (3.5-5.1)
[~2021-12-15] MED LIST changes: +AMLODIPINE BESYL5 MG PO; +ATORVASTATIN CA20 MG PO; +BENICAR HCT 401 EAC1 PO; +BUPIVACAINE HCL 0.5% 10ML MPF VIAL INJ ONE; +CLONIDINE HCL0.1 MG PO; +CLOPIDOGREL75 MG PO; +CYMBALTA30 MG PO; +DEXAMETHASONE SOD PHOS INJ 4 MG/ML SDV ONE; +KETOROLAC TROMETHAMINE 30 MG/ML VIAL IV ONE; +LANTUS 3ML100 UNITS/; +NEOSTIGMINE 1 MG/ML 10ML VIAL ONE; +ONDANSETRON HCL INJ 2MG/ML 2ML 2 MG/ML VIAL IV ONE; +POVIDONE IODINE 0.05% 0.05 % ML PO ONE; +PROPOFOL IV EMULSION 10 MG/ML 20 ML VIAL IV ONE; +SEVOFLURANE INHAL SOLN 250 ML PEN BTL INH ONE; +SODIUM CHLORIDE 0.9% 250ML 250 ML ONE; +TRULICITY3 MG/0.5 M INJ; +Vancomycin IV 1 GM VIAL IV ONE; +ZETIA10 MG PO
[2021-12-15 08:50] VITALS: BP 111/59
== END | disposition home or self-care (01) ==
LOC: OR 06:37
PROVIDERS: ATTEND Podiatrist Foot Surgery
DX: M21.622 Bunionette of left foot (principal); M25.872 Other specified joint disorders, left ankle and foot; E11.9 Type 2 diabetes mellitus without complications; I10 Essential (primary) hypertension; F17.210 Nicotine dependence, cigarettes, uncomplicated; Z88.0 Allergy status to penicillin; Z88.2 Allergy status to sulfonamides; Z88.6 Allergy status to analgesic agent; Z91.041 Radiographic dye allergy status; Z01.812 Encounter for preprocedural laboratory examination; Z01.818 Encounter for other preprocedural examination; Z79.4 Long term (current) use of insulin; Z79.899 Other long term (current) drug therapy; Z68.41 Body mass index [BMI] 40.0-44.9, adult; Z86.73 Personal history of transient ischemic attack (TIA), and cerebral infarction without residual deficits
CPT/HCPCS: 28110; 36415 ×2; 71046; 76000; 80048; 82948; 85025; 88304; 88311; 93005; J1100; J1885; J2405; J2704; J2710; J3370; J7050